=== PATIENT | female | born 1970 | race Hispanic/Latino ===

== ENCOUNTER 2024-07-28 16:49 | Observation (INO) | payer OTHER ==
[~2024-07-28] VITALS: Ht 157.5 cm; Wt 83.5 kg
[2024-07-28 17:10] VITALS: TEMP 98.5
[2024-07-28] MEDS: SODIUM CHLORIDE 0.9% 1000ML 1,000 ML IV STA (17:41)
[2024-07-28 17:42] LABS: BASOPHILS % 0.8 % (0.0-1.0); EOSINOPHILS # (AUTO) 0.1 (0.0-0.4); EOSINOPHILS % 3.1 % (0.0-6.0); HEMATOCRIT 26.1 % (34.2-44.1); LYMPHOCYTES # (AUTO) 0.8 (1.0-3.2); LYMPHOCYTES % 21.1 % (18.0-39.1); MEAN CORPUSCULAR HEMOGLOBIN 15.9 pg (28-32); MEAN CORPUSCULAR HGB CONC 24.1 g/dL (31-35); MEAN CORPUSCULAR VOLUME 65.9 fL (81-99); MONOCYTES # (AUTO) 0.2 (0.2-0.8); MONOCYTES % 6.2 % (4.4-11.3); NEUTROPHILS # (AUTO) 2.7 (2.1-6.9); NEUTROPHILS % 68.5 % (38.7-80.0); PLATELET COUNT 221 x10e3/uL (140-360); RED BLOOD COUNT 3.96 x10e6/uL (3.6-5.1); RED CELL DISTRIBUTION WIDTH 20.1 % (11.7-14.4); WHITE BLOOD COUNT 3.88 x10e3/uL (4.8-10.8)
[2024-07-28 17:45] VITALS: PULSE 74; RESP 18
[2024-07-28 17:46] LABS: HEMOGLOBIN 6.3 g/dL (12.0-16.0)
[2024-07-28 17:47] LABS: INR 1.01; PROTHROMBIN TIME 13.9 seconds (11.9-14.5)
[2024-07-28 17:48] LABS: PARTIAL THROMBOPLASTIN TIME 26.4 seconds (23.8-35.5)
[2024-07-28 17:54] LABS: ALBUMIN/GLOBULIN RATIO 1.2 (0.8-2.0); ANION GAP 12.7 mmol/L (8-16); BILIRUBIN,TOTAL 0.6 mg/dL (0.2-1.2); CALCIUM 8.6 mg/dL (8.4-10.2); CREATININE, SERUM 0.67 mg/dL (0.57-1.11); POTASSIUM 3.7 mmol/L (3.5-5.1); TOTAL PROTEIN 7.4 g/dL (6.5-8.1)
[2024-07-28 18:00] LABS: TROPONIN I 0.006 ng/mL (0-0.300)
[2024-07-28] MEDS: ACETAMINOPHEN 325 MG TAB PO ONE (18:03)
[2024-07-28] MEDS ORDERED: ONDANSETRON HCL INJ 2MG/ML 2ML 2 MG/ML VIAL IV PRN (18:45)
[2024-07-28] MEDS ORDERED: SODIUM CHLORIDE FLUSH 10 ML SYR INJ PRN (18:45)
[2024-07-28 18:52] LABS: % IRON SATURATION 2 % (15-50); IRON 16 ug/dL (50-170); TOTAL IRON BINDING CAPACITY 666 ug/dL (261-478); TRANSFERRIN 476 mg/dL (180-382)
[2024-07-28 19:20] LABS: FERRITIN < 1.00 ng/mL (4.63-204.00)
[2024-07-28 19:35] VITALS: PULSE 71; RESP 16; O2SAT 98
[2024-07-28 19:49] VITALS: BP 140/51; PULSE 73; RESP 18; TEMP 98.1; O2SAT 100
[2024-07-28] MEDS: SODIUM CHLORIDE 0.9% 500ML 500 ML ONE (23:14)
[2024-07-28] MEDS ORDERED: IBUPROFEN800 MG PO (23:17)
[2024-07-28] MEDS ORDERED: GABAPENTIN100 MG PO (23:17)
[2024-07-28] MEDS ORDERED: HYDROXYZINE HCL25 MG PO (23:17)
[2024-07-28] MEDS: ACETAMINOPHEN 325 MG TAB PO PRN (23:51)
[2024-07-29] VITALS (7 sets, daily range): BP systolic 122–127; BP diastolic 57–65; PULSE 64–75; RESP 16–18; TEMP 98–98.4; O2SAT 65–100
[2024-07-29] MEDS: GABAPENTIN 300 MG CAP PO SCH (01:45)
[2024-07-29] MEDS: GABAPENTIN 300 MG CAP ONE (04:23)
[2024-07-29] MEDS: HYDROCODONE/APAP 5MG-325MG TAB PO PRN (04:27)
[2024-07-29] MEDS: CYANOCOBALAMIN INJ 1,000 MCG/ML VIAL IM ONE (09:00)
[2024-07-29 11:56] LABS: HEMATOCRIT 29.9 % (34.2-44.1); HEMOGLOBIN 7.8 g/dL (12.0-16.0); MEAN CORPUSCULAR HEMOGLOBIN 18.5 pg (28-32); MEAN CORPUSCULAR HGB CONC 26.1 g/dL (31-35); MEAN CORPUSCULAR VOLUME 70.9 fL (81-99); PLATELET COUNT 186 x10e3/uL (140-360); RED BLOOD COUNT 4.22 x10e6/uL (3.6-5.1); RED CELL DISTRIBUTION WIDTH 22.7 % (11.7-14.4); WHITE BLOOD COUNT 3.41 x10e3/uL (4.8-10.8)
[2024-07-29 12:19] LABS: ANION GAP 12.2 mmol/L (8-16); CALCIUM 8.8 mg/dL (8.4-10.2); CREATININE, SERUM 0.6 mg/dL (0.57-1.11); POTASSIUM 4.2 mmol/L (3.5-5.1)
[2024-07-29] MEDS: PANTOPRAZOLE SOD 40 MG TABEC PO SCH (13:10)
[2024-07-29] MEDS: FERROUS SULFATE 325 MG TAB PO SCH (13:10)
[2024-07-29] MEDS: FUROSEMIDE INJ 10 MG/ML 2 ML VIAL IV ONE (13:11)
[2024-07-29] MEDS ORDERED: FUROSEMIDE INJ 10 MG/ML 2 ML VIAL IV PRN (13:15)
[2024-07-29] MEDS: SODIUM CHLORIDE 0.9% 250ML 250 ML IV ONE (16:38)
[2024-07-29 19:29] LABS: BASOPHILS # (AUTO) 0.1 (0.0-0.1); BASOPHILS % 1.1 % (0.0-1.0); EOSINOPHILS # (AUTO) 0.1 (0.0-0.4); EOSINOPHILS % 2.2 % (0.0-6.0); HEMATOCRIT 33.7 % (34.2-44.1); HEMOGLOBIN 9.3 g/dL (12.0-16.0); LYMPHOCYTES % 22.6 % (18.0-39.1); MEAN CORPUSCULAR HEMOGLOBIN 19.5 pg (28-32); MEAN CORPUSCULAR HGB CONC 27.6 g/dL (31-35); MEAN CORPUSCULAR VOLUME 70.8 fL (81-99); MONOCYTES # (AUTO) 0.3 (0.2-0.8); MONOCYTES % 6.2 % (4.4-11.3); NEUTROPHILS # (AUTO) 3.1 (2.1-6.9); NEUTROPHILS % 67.9 % (38.7-80.0); PLATELET COUNT 199 x10e3/uL (140-360); RED BLOOD COUNT 4.76 x10e6/uL (3.6-5.1); RED CELL DISTRIBUTION WIDTH 23.7 % (11.7-14.4); WHITE BLOOD COUNT 4.51 x10e3/uL (4.8-10.8)
[2024-07-29] MEDS ORDERED: FEROSUL325 MG PO (19:50)
[2024-07-29] MEDS ORDERED: GABAPENTIN 100 MG CAP PO SCH (21:00)
== END 2024-07-29 20:59 | disposition home or self-care (01) ==
LOC: ER 17:34 → ERHOLD 18:39 → MED/SURG2 19:43
PROVIDERS: ADMIT Internal Medicine; ATTEND Internal Medicine
DX: D50.9 Iron deficiency anemia, unspecified (principal); D72.819 Decreased white blood cell count, unspecified; R09.89 Other specified symptoms and signs involving the circulatory and respiratory systems; E53.8 Deficiency of other specified B group vitamins; K21.9 Gastro-esophageal reflux disease without esophagitis; F41.9 Anxiety disorder, unspecified; G62.9 Polyneuropathy, unspecified; F17.210 Nicotine dependence, cigarettes, uncomplicated; E66.09 Other obesity due to excess calories; Z68.33 Body mass index [BMI] 33.0-33.9, adult; G47.00 Insomnia, unspecified; Z79.899 Other long term (current) drug therapy
CPT/HCPCS: 36415 ×2; 70450; 71045; 80048; 80053; 82550; 82607; 82728; 83540; 83735; 84466; 84484; 85007; 85025 ×2; 85027; 85610; 85730; 86850; 86900; 86920; 93005; 94799 ×2; 99284; G0378 ×2; J1940; J2470; J3420; J7030; J7040; J7050; P9016 ×2; S0164